=== PATIENT | female | born 1980 | race Hispanic/Latino ===

== ENCOUNTER 2017-04-20 16:36 | Emergency (ER) | payer SELFPAY | END 2017-04-20 17:05 | disposition home or self-care (01) | LOC: MADERS 16:36 | DX: B37.3 Candidiasis of vulva and vagina (principal); I49.9 Cardiac arrhythmia, unspecified | CPT/HCPCS: 99283 ==

== ENCOUNTER 2020-05-03 11:52 | Emergency (ER) | payer OTHER ==
[2020-05-03 12:59] LABS: Bilirubin Negative (Negative); Blood, Urine Large (Negative); Clarity Clear (Clear); Glucose, Urine (Dipstick) Negative (Negative); Ketone, Urine 15 mg/dL (Negative); Leukocyte Negative (Negative); Nitrite Negative (Negative); Protein, Urine (Dipstick) Trace mg/dL (Neg-Trace); Specific Gravity, Urine 1.025 (1.005-1.030); Urobilinogen 0.2 mg/dL (Less than 2)
[2020-05-03 13:07] LABS: #Monocytes 0.4 thou/uL (0.11-0.59); #Neutrophils 7.3 thou/uL (1.40-6.50); %Basophils 0.5 % (0.0-1.0); %Eosinophils 0.4 % (0.0-10.0); %Lymphocytes 10.9 % (21.0-51.0); %Monocytes 4.6 % (0.0-10.0); %Neutrophils 83.6 % (42.0-75.0); Hemoglobin 12.9 g/dL (12.0-16.0); Mean Corpuscular HGB CONC 33.9 g/dL (32.0-36.0); Mean Corpuscular Volume 85.7 fL (78.0-98.0); Mean Platelet Volume 9.5 fL (7.4-10.4); Platelet Count 189 thou/uL (130-400); RBC Distribution Width 13.8 % (11.5-14.5); Red Blood Cell (RBC) Count 4.45 mill/uL (4.20-5.40); White Blood Cell (WBC) Count 8.7 thou/uL (4.8-10.8)
[2020-05-03 13:08] LABS: Pregnancy Test - Urine (BHCG) Negative (Negative); Pregu Control Background? CLEAR/WHITE (CLR/WHITE); Pregu Control Bar Appear? YES (CONTROL BAR); Specific Gravity 1.025 (1.002-1.036)
[2020-05-03 13:12] LABS: RBC/HPF Greater than 50 HPF (0-3)
[2020-05-03 13:13] LABS: Bacteria/HPF 1+ HPF (None Seen)
[2020-05-03 13:22] LABS: ALT (SGPT) 17 U/L (8-55); AST (SGOT) 17 U/L (5-34); Albumin 3.8 g/dL (3.5-5.0); Alkaline Phosphatase 61 U/L (40-110); Anion Gap 13 mmol/L (10-20); BUN (Urea Nitrogen) 15 mg/dL (7.0-18.7); Bilirubin, Total 0.9 mg/dL (0.2-1.2); Calc. Creatinine Clearance 0 mL/min (70-130); Calcium 8.1 mg/dL (7.8-10.44); Carbon Dioxide 22 mmol/L (22-29); Chloride 110 mmol/L (98-107); Estimated GFR-MDRD Greater than 90; Globulin 2.5 g/dL (2.4-3.5); Glucose 130 mg/dL (70-105); Lipase 26 U/L (8-78); Potassium 3.7 mmol/L (3.5-5.1); Protein, Total 6.3 g/dL (6.0-8.3); Sodium 141 mmol/L (136-145)
--- NOTE | 2020-05-03 13:42 | CT ---
CT Abdomen Pelvis WO Con 05/03/2020 1:13 PM HISTORY: Left flank pain. COMPARISON: None. Technique: Multiple contiguous axial CT images are obtained through the abdomen and pelvis without IV contrast. Coronal reformats are provided. FINDINGS: This examination is limited for the evaluation of solid organs and vascular structures due to the lac k of intravenous contrast. Lower Chest: Partial visualization of AICD leads. There is minimal groundglass densities seen in the region of the right middle lobe likely due to volume loss. Lung bases are otherwise clear. Liver: Grossly normal non-enhanced CT appearance. Gallbladder: Within normal limits for CT imaging. Pancreas: Grossly normal nonenhanced CT appearance. Spleen: Grossly normal nonenhanced CT appearance. Adrenals: Grossly normal nonenhanced CT appearance. Kidneys, ureters, urinary bladder: A 3 mm calculus is present in the distal right ureter near the UVJ with resultant moderate to severe right hydronephrosis and hydroureter. There is minimal periureteral stranding present. There are several nonobstructing closely adjacent calculi seen within the inferior pole right kidney. No left renal or ureteral calculus is present. Urinary bladder is incompletely distended but otherwise normal in appearance. Reproductive Organs: 1.7 cm hypodense structure right adnexal region which is difficult to evaluate g iven adjacent unopacified loops of small bowel. This may represent a right ovarian cyst/dominant follicle. Uterus and left adnexa demonstrate a gross ly normal nonenhanced CT appearance.. Lymph Nodes: No enlarged lymph nodes. Bowel: Scattered colonic diverticula are visualized. Loops of small bowel are normal in caliber. Appendix: Not definitely visualized, but there are no secondary signs to suggest appendicitis. Peritoneum: No free fluid, free air, or fluid collection. Retroperitoneum: within normal limits. Vessels: Incidental note is made of a retroaortic left renal vein. The abdominal aorta is normal in c aliber.. Abdominal Wall: within normal limits. 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 No suspicious lytic or sclerotic osseous lesions are identified. Degenerative changes are seen in the lumbar spine at the L2-3 level with disc osteophyte complex noted. IMPRESSION: 1. Partially obstructing distal right ureteral calculus near the level of the UVJ measuring 3 mm, and there is resultant moderate to severe right hydronephrosis and hydroureter. 2. Nonobstructing inferior pole right renal calculi.
[2020-05-03] MEDS ORDERED: Morphine 4 MG/ML VIAL ONE (14:10)
[2020-05-03] MEDS ORDERED: Ketorolac Tromethamine 30 MG/ML VIAL ONE (14:10)
== END 2020-05-03 15:03 | disposition home or self-care (01) ==
LOC: MADERS 11:52
DX: R07.9 Chest pain, unspecified (principal); E11.9 Type 2 diabetes mellitus without complications; Z79.84 Long term (current) use of oral hypoglycemic drugs; Z79.899 Other long term (current) drug therapy
CPT/HCPCS: 36415; 74176; 80053; 81003; 81015; 81025; 83690; 85025; J1885; J2270

== ENCOUNTER 2020-05-04 00:34 | Emergency (ER) | payer OTHER ==
[2020-05-04] MEDS ORDERED: Ketorolac Tromethamine 30 MG/ML VIAL ONE (01:12)
[2020-05-04] MEDS ORDERED: Ondansetron PF 4 MG/2 ML Vial ONE (01:12)
== END 2020-05-04 01:46 | disposition home or self-care (01) ==
LOC: MADERS 00:34
DX: N20.0 Calculus of kidney (principal); I49.9 Cardiac arrhythmia, unspecified; Z79.899 Other long term (current) drug therapy
CPT/HCPCS: 96374; 96375; J1885; J2405